=== PATIENT | female | born 1990 | race Caucasian/White ===

== ENCOUNTER 2018-03-04 10:52 | Emergency (ER) | payer OTHER ==
--- NOTE | 2018-03-04 12:11 | PDOC ---
History of Present Illness - General Chief Complaint: Chest Pain Stated Complaint: CHEST PAIN Time Seen by Provider: 03/04/18 11:26 History Source: Patient Exam Limitations: No Limitations - History of Present Illness Initial Comments: CHIEF COMPLAINT: 27 y/o afebrile female with no significant PMH c/o left sided chest wall pain x 5 days. HISTORY OF PRESENT ILLNESS: The patient states she was working out last week, was doing chest wall exercises and afterwards felt pain in her left anterior chest and left shoulder region. It is worse with deep breaths, movement and when she touches the area. SHe denies fever, cough, hemoptysis, [place], dizziness, changes in vision/hearing, SOB, n/v/d, abd pain, back pain, control use, recent travel, calf pain, smoking history, family history of sudden cardiac . The patient took tylenol for pain with little relief. The patient does admit she has some anxiety and has felt very anxious about her symptoms. Vital signs on arrival are within normal limits. REVIEW OF SYSTEMS: GENERAL/CONSTITUTIONAL: No fever/chills. No weakness. No weight change. HEAD, EYES, EARS, NOSE AND THROAT: No change in vision. No ear pain or discharge. No sore throat. CARDIOVASCULAR: +left sided chest pain. No shortness of breath. RESPIRATORY: No cough, wheezing, or hemoptysis. GASTROINTESTINAL: No abd pain, nausea, vomiting, diarrhea. GENITOURINARY: No dysuria, frequency, or change in urination. MUSCULOSKELETAL: No joint or muscle swelling or pain. No neck or back pain. SKIN: No rash or easy bruising. NEUROLOGIC: No headache, vertigo, loss of consciousness, or loss of sensation. PHYSICAL EXAM: GENERAL: The patient is awake, alert, and fully oriented, in no acute distress. SHe is well appearing, in shape, speaks in full sentences without difficulty, in NAD or obvious discomfort. HEAD: Normal with no signs of trauma. ENT: Pupils equal, round and reactive to light, extraocular movements intact, sclera anicteric, conjunctiva clear. Neck supple. LUNGS: Clear to auscultation bilaterally. Normal excursion. No respiratory distress or use of accessory muscles. CV: RRR, S1/S2, no MRG. Cap refill < 2 sec. CHEST WALL: Reproducible pain with palpation of left anterior chest, superior to left breast. ABDOMEN: Soft, non-distended, non-tender even to deep palpation, no hepatomegaly or splenomegaly, no masses. BACK: Reproducible pain with palpation of medial border of left scapula. Full ROM of left shoulder. Pain reproduced with movement of left trapezius muscle. EXTREMITIES: Normal range of motion, no edema. NEUROLOGICAL: Normal speech, normal gait. CN II-XII grossly intact. SKIN: Warm, dry, normal turgor, no rashes or lesions noted. Past History - Past Medical History Allergies/Adverse Reactions: Allergies Allergy/AdvReac Type Severity Reaction Status Date / Time No Known Allergies Allergy Verified 03/04/18 11:01 COPD: No Other medical history: DENIES - Suicide/Smoking/Psychosocial Hx Smoking History: Current every day smoker Have you smoked in the past 12 months: Yes Number of Cigarettes Smoked Daily: 2 Information on smoking cessation initiated: No *Physical Exam - Vital Signs Last Vital Signs Temp Pulse Resp BP Pulse Ox 98.7 F 92 H 18 147/87 100 03/04/18 11:03/04/18 11:03/04/18 11:03/04/18 11:03/04/18 11:01 Heart Score/ECG Review - ECG Intrepretation Comment:: Twelve-lead EKG was performed and reviewed by Rose. There is normal sinus rhythm with a normal rate. The axis is normal. The intervals are normal. There are no ST or T wave abnormalities. Impression: Normal twelve-lead EKG Medical Decision Making - Medical Decision Making A/P: 27 y/o female with musculoskeletal chest pain. EKG done in triage was normal. Suggested heating pad, deep breaths, and NSAIDs for symptoms. INstructed the patient to avoid heavy lifting until symptoms improve and f/u with Dr. Paz within 1 week if no improvement. The patient verbalizes understanding of all instructions, has no further questions and is awaiting discharge. *DC/Admit/Observation/Transfer Diagnosis at time of Disposition: Chest wall pain - Discharge Dispostion Disposition: HOME Condition at time of disposition: Good - Referrals Referrals: Vu Paz MD [Staff Physician] - Call tomorrow - Patient Instructions Printed Discharge Instructions: DI for Atypical Chest Pain, DI for Musculoskeletal Pain Additional Instructions: Discharge Instructions: -You have muscular chest wall pain -Your EKG was normal -Please take 600mg of over the counter Ibuprofen OR Mortin every 6 hours for pain with food Take deep breaths every hour -Avoid heavy lifting until feeling better -Apply heating pad to affected area -return to the ER with any worsening or concerning symptoms - Post Discharge Activity
[2018-03-04 12:16] VITALS: BP 137/97; PULSE 85; TEMP 98.1; BMI 29.2
--- NOTE | 2018-03-06 11:22 | EKG ---
Test Reason : Blood Pressure : / mmHG Vent. Rate : 082 BPM Atrial Rate : 082 BPM P-R Int : 144 ms QRS Dur : 086 ms QT Int : 396 ms P-R-T Axes : -03 073 049 degrees QTc Int : 462 ms NORMAL SINUS RHYTHM WITH SINUS ARRHYTHMIA NORMAL ECG NO PREVIOUS ECGS AVAILABLE Confirmed by EDITH HUANG MD ([id number]) on 03/06/2018 11:21:52 AM Referred By: Confirmed By:EDITH HUANG MD
== END 2018-03-04 12:37 | disposition home or self-care (01) ==
LOC: JERFT 10:52
DX: R07.89 Other chest pain (principal); F17.210 Nicotine dependence, cigarettes, uncomplicated
CPT/HCPCS: 93005; 93010; 99281-25